=== PATIENT | female | born 2000 | race Caucasian/White ===

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

== ENCOUNTER 2019-01-25 20:41 | Emergency (ER) | payer OTHER ==
[~2019-01-25] VITALS: Ht 162.6 cm; Wt 98.4 kg
[2019-01-25 20:53] VITALS: BP 138/90; Ht 162.6 cm; Wt 98.4 kg
== END 2019-01-26 00:32 | disposition left against medical advice (07) ==
LOC: ED 20:41
DX: Z53.21 Procedure and treatment not carried out due to patient leaving prior to being seen by health care provider (principal)

== ENCOUNTER 2020-02-01 03:28 | Emergency (ER) | payer OTHER ==
[~2020-02-01] VITALS: Ht 162.6 cm; Wt 105.3 kg
[2020-02-01 04:57] VITALS: BP 146/83
== END 2020-02-01 04:57 | disposition home or self-care (01) ==
LOC: ED 03:28
DX: S31.41XA Laceration without foreign body of vagina and vulva, initial encounter (principal); N83.202 Unspecified ovarian cyst, left side; J45.909 Unspecified asthma, uncomplicated; X58.XXXA Exposure to other specified factors, initial encounter; Y93.89 Activity, other specified; Y92.89 Other specified places as the place of occurrence of the external cause; Y99.8 Other external cause status